=== PATIENT | female | born 1955 | race Caucasian/White ===

== ENCOUNTER → 2017-06-14 | Outpatient (CLI) | payer OTHER ==
--- NOTE | 2017-06-20 14:28 | MM ---
Reason for exam: screening (asymptomatic). Last mammogram was performed 2 years and 7 months ago. History: Patient is postmenopausal. Family history of breast cancer in paternal grandmother. Physical Findings: A clinical breast exam by your physician is recommended on an annual basis and results should be correlated with mammographic findings. MG Screening Mammo w CAD Bilateral CC and MLO view(s) were taken. Prior study comparison: November 24, 2014, bilateral MG screening mammo w CAD. September 09, 2013, bilateral digital screening mammo w/CAD. There are scattered fibroglandular densities. Finding: There are typically benign round, grouped/clustered calcifications in the anterior position of the left breast, 2cm from the nipple. New finding since November 24, 2014 and September 09, 2013. ASSESSMENT: Probably benign, BI-RAD 3 RECOMMENDATION: Follow-up diagnostic mammogram of the left breast in 6 months. (including magnification views)
== END | disposition home or self-care (01) ==
LOC: RADMAMWWP 12:40
PROVIDERS: ATTEND Internal Medicine
DX: Z12.31 Encounter for screening mammogram for malignant neoplasm of breast (principal)

== ENCOUNTER → 2017-12-16 | Outpatient (CLI) | payer BC ==
--- NOTE | 2017-12-20 10:20 | MM ---
Reason for exam: follow-up at short interval from prior study. Last mammogram was performed 6 months ago. History: Patient is postmenopausal. Family history of breast cancer in paternal grandmother. Physical Findings: Nurse did not find any significant physical abnormalities on exam. MG 3D Diag Mammo W/Cad LT CC, MLO, ML, CC with magnification, and ML with magnification view(s) were taken of the left breast. Prior study comparison: June 15, 2017, bilateral MG screening mammo w CAD. November 24, 2014, bilateral MG screening mammo w CAD. The breast tissue is heterogeneously dense. This may lower the sensitivity of mammography. There are 4 stable grouped calcifications. No significant new findings when compared with previous films. These results were verbally communicated with the patient and result sheet given to the patient on 12/16/17. ASSESSMENT: Probably benign, BI-RAD 3 RECOMMENDATION: Follow-up diagnostic mammogram of both breasts in 6 months. Back on schedule.
== END | disposition home or self-care (01) ==
LOC: RADMAMWWP 09:33
PROVIDERS: ATTEND Internal Medicine
DX: R92.8 Other abnormal and inconclusive findings on diagnostic imaging of breast (principal)
CPT/HCPCS: 77061; 77065

== ENCOUNTER 2018-06-26 22:30 | Emergency (ER) | payer BC ==
[2018-06-26 22:36] VITALS: TEMP 98.2
--- NOTE | 2018-06-26 22:37 | ED ---
Chest Pain HPI - General Chief Complaint: Chest Pain Stated Complaint: Chest pain Time Seen by Provider: 06/26/18 22:36 Source: patient, RN notes reviewed, old records reviewed Mode of arrival: ambulatory Limitations: no limitations - History of Present Illness Initial Comments: This is a 63-year-old female the ER for evaluation. Patient resents today for evaluation of chest pain. Patient does have severe anterior chest pain sharp chest pain stabbing chest pain. Patient complained ER for evaluation. Patient does have history of high blood pressure has been seen by cardiology. No current cardiac catheterization, patient has had prior stress test which was normal MD Complaint: chest pain -: hour(s) Onset: during rest Pain Location: substernal Pain Radiation: back Severity: moderate Severity scale (1-10): 7 Quality: tightness, sharp Consistency: constant Improves With: nothing Worsens With: nothing Anginal Symptoms: nausea Other Symptoms: palpitations Treatments Prior to Arrival: none - Related Data Home Medications Medication Instructions Recorded Confirmed Lisinopril-Hctz 20-12.5 mg 1 tab PO BID 08/03/14 06/26/18 [Zestoretic 20-12.5] Aspirin [Adult Low Dose Aspirin EC] 81 mg PO DAILY 06/26/18 06/26/18 Metoprolol Succinate [Toprol XL] 200 mg PO DAILY 06/26/18 06/26/18 amLODIPine [Norvasc] 10 mg PO DAILY 06/26/18 06/26/18 cloNIDine HCL 0.3 mg PO BID 06/26/18 06/26/18 Allergies Allergy/AdvReac Type Severity Reaction Status Date / Time codeine AdvReac Nausea & Verified 06/26/18 22:52 Vomiting Review of Systems ROS Statement: Those systems with pertinent positive or pertinent negative responses have been documented in the HPI. ROS Other: All systems not noted in ROS Statement are negative. 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, HR runs low History of Any Multi-Drug Resistant Organisms: None Reported Past Surgical History: Hysterectomy Additional Past Surgical History / Comment(s): corrective rt eye sugery post cva , Past Anesthesia/Blood Transfusion Reactions: No Reported Reaction Past Psychological History: No Psychological Hx Reported Smoking Status: Never smoker Past Alcohol Use History: None Reported Past Drug Use History: None Reported - Past Family History Mother Family Medical History: Cancer General Exam Limitations: no limitations General appearance: alert, in no apparent distress Head exam: Present: atraumatic, normocephalic, normal inspection Eye exam: Present: normal appearance, PERRL, EOMI. Absent: scleral icterus, conjunctival injection, periorbital swelling ENT exam: Present: normal exam, mucous membranes moist Neck exam: Present: normal inspection. Absent: tenderness, meningismus, lymphadenopathy Respiratory exam: Present: normal lung sounds bilaterally. Absent: respiratory distress, wheezes, rales, rhonchi, stridor Cardiovascular Exam: Present: regular rate, normal rhythm, normal heart sounds. Absent: systolic murmur, diastolic murmur, rubs, gallop, clicks GI/Abdominal exam: Present: soft, normal bowel sounds. Absent: distended, tenderness, guarding, rebound, rigid Extremities exam: Present: normal inspection, full ROM, normal capillary refill. Absent: tenderness, pedal edema, joint swelling, calf tenderness Back exam: Present: normal inspection Neurological exam: Present: alert, oriented X3, CN II-XII intact Psychiatric exam: Present: normal affect, normal mood Skin exam: Present: warm, dry, intact, normal color. Absent: rash Course Vital Signs 06/26/18 06/26/18 06/27/18 22:33 22:53 00:34 Temperature 98.2 F Pulse Rate 55 L 57 L 51 L Respiratory 16 20 16 Rate Blood Pressure 195/100 198/119 152/81 O2 Sat by Pulse 97 97 97 Oximetry - Reevaluation(s) Reevaluation #1: Medical record is reviewed Reevaluation #2: On reevaluation patient has no chest pain, refusing pain medication blood pressure is normalized without intervention, patient admits to anxiety upon admission to ER Reevaluation #3: Patient offered him. Patient observation for cardiology evaluation she states she will call federal appellate law clerk in the morning states that she is pain-free like to be discharged home Chest Pain MDM - MDM 63 female the ER for evaluation. Presents today for evaluation regards to chest pain. Chest pain resolved upon admission to emergency room. CTA chest is negative EKG negative troponin negative. Disposition Clinical Impression: Chest pain Disposition: HOME SELF-CARE Condition: Undetermined Instructions: Chest Pain (ED) Is patient prescribed a controlled substance at d/c from ED?: No Referrals: Nory Murguia MD [Primary Care Provider] - 1-2 days
[2018-06-26 23:18] LABS: Basophils # (A) 0.1 k/uL (0-0.2); Basophils % (A) 1 %; Eosinophils # (A) 0.2 k/uL (0-0.7); Eosinophils % (A) 3 %; HCT 45.6 % (34.0-46.0); HGB 15.3 gm/dL (11.4-16.0); Lymphocytes # (A) 2.4 k/uL (1.0-4.8); Lymphocytes % (A) 42 %; MCH 29.8 pg (25.0-35.0); MCHC 33.6 g/dL (31.0-37.0); MCV 88.8 fL (80.0-100.0); Mean Platelet Volume 7.5; Monocytes # (A) 0.3 k/uL (0-1.0); Monocytes % (A) 6 %; Neutrophils # (A) 2.6 k/uL (1.3-7.7); Neutrophils % (A) 45 %; Platelet Count 166 k/uL (150-450); RBC 5.14 m/uL (3.80-5.40); RDW 13.2 % (11.5-15.5); WBC 5.7 k/uL (3.8-10.6)
[2018-06-26 23:23] LABS: Albumin 4.5 g/dL (3.5-5.0); Calcium 9.4 mg/dL (8.4-10.2); Total Bilirubin 0.9 mg/dL (0.2-1.3); Total Protein 8.3 g/dL (6.3-8.2)
[2018-06-26 23:27] LABS: Partial Thromboplastin Time 25.9 sec (22.0-30.0); Prothrombin Time 10.7 sec (9.0-12.0)
[2018-06-26 23:31] LABS: Magnesium 1.6 mg/dL (1.6-2.3); Potassium 4.4 mmol/L (3.5-5.1)
[2018-06-26 23:35] LABS: Creatine Kinase 75 U/L (30-135)
[2018-06-26 23:48] LABS: Creatine Kinase MB 0.9 ng/mL (0.0-2.4)
[2018-06-26 23:53] LABS: Troponin I <0.012 ng/mL (0.000-0.034)
[2018-06-27] MEDS ORDERED: SODIUM CHLORIDE 0.9% 1,000 ML IV STA (00:22)
[2018-06-27] MEDS ORDERED: MORPHINE SULFATE 4 MG/ML SYRINGE IVP STA (00:22)
[2018-06-27] MEDS ORDERED: LABETALOL SYRINGE 5 MG/ML IVP STA (00:23)
[2018-06-27 00:36] VITALS: BP 152/81; PULSE 51; RESP 16
--- NOTE | 2018-06-27 00:41 | CT ---
EXAMINATION TYPE: CT angio thor/abd pel aorta DATE OF EXAM: 06/27/2018 COMPARISON: HISTORY: R/O AAA Chest pain abdominal pain CT DLP: 1637.90 mGycm. Automated Exposure Control for Dose Reduction was Utilized. CONTRAST: CT scan of the thorax, abdomen and pelvis is performed with IV Contrast, patient injected with 100 mL of Isovue 370. Images obtained also without contrast. FINDINGS: The lungs are clear of infiltrate. There is no evidence of a pulmonary mass. There is no pleural effu fredis. There is normal branching pattern of the great vessels on the aortic arch. Thoracic aorta is intact w ithout evidence of aneurysm or dissection. I see no filling defects in the pulmonary arteries. Heart size is slightly enlarged. There is no pericardial effusion. Abdominal aorta is intact without evidence of aneurysm or dissection. There is no evidence of stenosi s. There is patency of the celiac artery and superior mesenteric artery. There is patency of the eusebio l arteries. There is patency of the iliac and femoral arteries. The bladder distends smoothly. There is no free fluid in the pelvis. Kidneys show satisfactory contrast opacification. There is no hydronephrosis. There is no retroperito daylin adenopathy. I see no bony destructive process. There is some sigmoid diverticulosis without evid ence of diverticulitis. IMPRESSION: Negative CT angiogram of the chest abdomen pelvis. No evidence of pulmonary embolism. No evidence of aortic aneurysm or dissection. No evidence of hemodynamic stenosis.
== END 2018-06-27 01:04 | disposition home or self-care (01) ==
LOC: EC 22:30
DX: R07.2 Precordial pain (principal); R11.0 Nausea; R00.2 Palpitations; F41.9 Anxiety disorder, unspecified; I48.91 Unspecified atrial fibrillation; K21.9 Gastro-esophageal reflux disease without esophagitis; I10 Essential (primary) hypertension; Z86.73 Personal history of transient ischemic attack (TIA), and cerebral infarction without residual deficits; Z79.82 Long term (current) use of aspirin; Z79.899 Other long term (current) drug therapy; Z88.5 Allergy status to narcotic agent; Z53.29 Procedure and treatment not carried out because of patient's decision for other reasons
CPT/HCPCS: 36415; 93005; 83880; 80053; 82550; 82553; 83690; 83735; 84484; 85025; 85610; 85730; 71275; 74174; 99285; Q9967

== ENCOUNTER → 2018-08-19 | Outpatient (CLI) | payer BC ==
--- NOTE | 2018-08-19 09:54 | MM ---
Reason for exam: follow-up at short interval from prior study. Last mammogram was performed 8 months ago. History: Patient is postmenopausal. Family history of breast cancer in paternal grandmother. Physical Findings: Nurse did not find any significant physical abnormalities on exam. MG Diagnostic Mammo w CAD DARY Bilateral CC and MLO view(s) were taken. Prior study comparison: December 16, 2017, left breast MG 3d diag mammo w/cad LT. June 15, 2017, bilateral MG screening mammo w CAD. The breast tissue is heterogeneously dense. This may lower the sensitivity of mammography. There are benign appearing round calcifications in the left breast. There is no discrete abnormality. These results were verbally communicated with the patient and result sheet given to the patient on 08/19/18. ASSESSMENT: Benign, BI-RAD 2 RECOMMENDATION: Routine screening mammogram of both breasts in 1 year.
== END | disposition home or self-care (01) ==
LOC: RADMAMWWP 08:03
PROVIDERS: ATTEND Internal Medicine
DX: R92.8 Other abnormal and inconclusive findings on diagnostic imaging of breast (principal)
CPT/HCPCS: 77066

== ENCOUNTER → 2019-08-20 | Outpatient (CLI) | payer MEDICARE, OTHER ==
--- NOTE | 2019-08-21 14:09 | MM ---
Reason for exam: screening (asymptomatic). Last mammogram was performed 1 year ago. History: Patient is postmenopausal. Family history of breast cancer in paternal grandmother. Physical Findings: A clinical breast exam by your physician is recommended on an annual basis and results should be correlated with mammographic findings. MG Screening Mammo w CAD Bilateral CC and MLO view(s) were taken. Prior study comparison: August 19, 2018, bilateral MG diagnostic mammo w CAD DARY. December 16, 2017, left breast MG 3d diag mammo w/cad LT. There are scattered fibroglandular densities. No suspicious abnormality. No significant changes when compared with prior studies. ASSESSMENT: Negative, BI-RAD 1 RECOMMENDATION: Routine screening mammogram of both breasts in 1 year.
== END | disposition home or self-care (01) ==
LOC: RADMAMWWP 09:14
PROVIDERS: ATTEND Internal Medicine
DX: Z12.31 Encounter for screening mammogram for malignant neoplasm of breast (principal)
CPT/HCPCS: 77067

== ENCOUNTER → 2020-08-26 | Outpatient (CLI) | payer MEDICARE, OTHER ==
--- NOTE | 2020-08-29 12:04 | MM ---
Reason for exam: screening (asymptomatic). Last mammogram was performed 1 year ago. History: Patient is postmenopausal. Family history of breast cancer in paternal grandmother. Physical Findings: A clinical breast exam by your physician is recommended on an annual basis and results should be correlated with mammographic findings. MG Screening Mammo w CAD Bilateral CC and MLO view(s) were taken. Prior study comparison: August 20, 2019, bilateral MG screening mammo w CAD. August 19, 2018, bilateral MG diagnostic mammo w CAD DARY. There are scattered fibroglandular densities. There are benign appearing round calcifications bilaterally. There is no discrete abnormality. ASSESSMENT: Benign, BI-RAD 2 RECOMMENDATION: Routine screening mammogram of both breasts in 1 year.
== END ==
LOC: RADMAMWWP 08:15
PROVIDERS: ATTEND Internal Medicine
DX: Z12.31 Encounter for screening mammogram for malignant neoplasm of breast (principal); Z78.0 Asymptomatic menopausal state; Z80.3 Family history of malignant neoplasm of breast
CPT/HCPCS: 77067

== ENCOUNTER → 2021-12-19 | Outpatient (CLI) | payer MEDICARE, OTHER ==
--- NOTE | 2021-12-20 05:09 | XR ---
EXAMINATION TYPE: XR cervical spine 6 views comp DATE OF EXAM: 12/19/2021 COMPARISON: None HISTORY: 66-year-old female limited movement in the neck, pain and stiffness. FINDINGS: Some degenerative change at the C1 dens articulation. No predental space widening or prevertebral sof t tissue swelling. Multilevel facet and uncovertebral joint arthropathy. Mild endplate spondylosis th roughout. On the right, changes resulting in moderate bony neuroforaminal narrowing at C3-C4 and mild at C5-C6. Normal odontoid view. Trace grade 1 anterolisthesis C4-C5 likely on a degenerative basis. IMPRESSION: 1. Multilevel facet and uncovertebral joint hypertrophy. Degenerative trace grade 1 anterolisthesis C 4-C5. 2. Moderate bony neuroforaminal narrowing on the right at C3-C4. Mild on the right at C5-C6.
--- NOTE | 2021-12-21 07:17 | MM ---
Reason for Exam: Screening (asymptomatic). Last mammogram was performed 1 year(s) and 3 month(s) ago. Patient History: Menarche at age 12. First Full-Term at age 16. Left ovary removed at age 47. Right ovary removed at age 47. Hysterectomy at age 47. Postmenopausal. Paternal grandmother had breast cancer. Risk Values: Kayla 5 year model risk: 1.2%. NCI Lifetime model risk: 4.2%. Prior Study Comparison: 08/19/2018 Bilateral Diagnostic Mammogram, [facility]. 08/20/2019 Bilateral Screening Mammogram, [facility]. 08/26/2020 Bilateral Screening Mammogram, [facility]. Tissue Density: The breast tissue is heterogeneously dense. This may lower the sensitivity of mammography. Findings: Analyzed By CAD. There is no suspicious group of microcalcifications or new suspicious mass in either breast. Overall Assessment: Negative, BI-RAD 1 Management: Screening Mammogram of both breasts in 1 year. A clinical breast exam by your physician is recommended on an annual basis and results should be correlated with mammographic findings. Electronically signed and approved by: Emiliano Gifford M.D. Radiologis
== END | disposition home or self-care (01) ==
LOC: RADMAMWWP 14:25
PROVIDERS: ATTEND Internal Medicine
DX: Z12.31 Encounter for screening mammogram for malignant neoplasm of breast (principal); M47.812 Spondylosis without myelopathy or radiculopathy, cervical region; M99.71 Connective tissue and disc stenosis of intervertebral foramina of cervical region; Z78.0 Asymptomatic menopausal state
CPT/HCPCS: 72050; 77067

== ENCOUNTER 2022-04-27 18:53 | Emergency (ER) | payer MEDICARE, OTHER ==
--- NOTE | 2022-04-27 19:37 | XR ---
EXAMINATION TYPE: XR chest 2V DATE OF EXAM: 04/27/2022 7:19 PM COMPARISON: Chest radiographs from none TECHNIQUE: XR chest 2V Frontal and lateral views of the chest. CLINICAL INDICATION:Female, 67 years old with history of cough; FINDINGS: Lungs/Pleura: There is no evidence of pleural effusion, focal consolidation, or pneumothorax. Pulmonary vascularity: Unremarkable. Heart/mediastinum: Cardiomediastinal silhouette is unremarkable. Musculoskeletal: No acute osseous pathology. IMPRESSION: No acute cardiopulmonary disease/process.
--- NOTE | 2022-04-27 20:51 | ED ---
General Adult HPI - General Chief complaint: Upper Respiratory Infection Stated complaint: Cough, chest congestion Time Seen by Provider: 04/27/22 20:25 Source: patient Mode of arrival: ambulatory Limitations: no limitations - History of Present Illness Initial comments: Dictation was produced using [employer] dictation software. please excuse any gram matical, word or spelling errors. Chief Complaint: 67-year-old who presents emergency department for cough and congestion History of Present Illness: Patient 59-year-old female presents emergency department for cough and congestion. Patient states that she's been feeling this for the last 2-3 days. Symptoms began mildly. Patient has any history of COPD or asthma. She's been exposed to her grandchild that tested positive for RSV recently. No other individual seemed to be sick. Denies any fever, chills or night sweats. No chest pain. Patient states that she takes medications for hypertension. Patient has any anticoagulation use however chart review shows that patient is a history of atrial fibrillation. The ROS documented in this emergency department record has been reviewed and confirmed by me. Those systems with pertinent positive or negative responses have been documented in the HPI. All other systems are other negative and/or noncontributory. PHYSICAL EXAM: General Impression: Alert and oriented x3, not in acute distress HEENT: Normocephalic atraumatic, extra-ocular movements intact, pupils equal and reactive to light bilaterally, mucous membranes moist. Cardiovascular: Heart regular rate and rhythm Chest: Able to complete full sentences, no retractions, no tachypnea, very faint wheeze at end expiration Abdomen: abdomen soft, non-tender, non-distended, no organomegaly Musculoskeletal: Pulses present and equal in all extremities, no peripheral edema Motor: no focal deficits noted Neurological: CN II-XII grossly intact, no focal motor or sensory deficits noted Skin: Intact with no visualized rashes Psych: Normal affect and mood ED course: 67-year-old female presents to the emergency department for URI type symptoms. She does have a mild faint end expiratory wheeze. Vital signs are stable. Patient showing signs of respiratory distress. She has had an obvious sick exposure. Patient not showing signs of respiratory distress. She is not hypoxic. Patient likely has a viral URI. Coag tests negative. Influenza test negative. Chest x-ray shows no acute processes. Patient given inhaler and Medrol Dosepak. Advised follow-up with primary care doctor. Return precautions discussed. - Related Data Home Medications Medication Instructions Recorded Confirmed Lisinopril-Hctz 20-12.5 mg 1 tab PO BID 08/03/14 06/26/18 [Zestoretic 20-12.5] Aspirin [Adult Low Dose Aspirin EC] 81 mg PO DAILY 06/26/18 06/26/18 Metoprolol Succinate [Toprol XL] 200 mg PO DAILY 06/26/18 06/26/18 amLODIPine [Norvasc] 10 mg PO DAILY 06/26/18 06/26/18 cloNIDine HCL [Catapres] 0.3 mg PO BID 06/26/18 06/26/18 Previous Rx's Medication Instructions Recorded Albuterol Sulfate [Proair Hfa] 1 - 2 puff INHALATION Q6HR PRN 04/27/22 #8.5 gm Benzonatate [Tessalon Perles] 100 mg PO TID PRN #24 capsule 04/27/22 methylPREDNISolone [Medrol Dose 0 mg PO DIRECTED #1 packet 04/27/22 Pack] Allergies Allergy/AdvReac Type Severity Reaction Status Date / Time codeine AdvReac Nausea & Verified 04/27/22 19:03 Vomiting Review of Systems ROS Statement: Those systems with pertinent positive or pertinent negative responses have been documented in the HPI. ROS Other: All systems not noted in ROS Statement are negative. 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, HR runs low History of Any Multi-Drug Resistant Organisms: None Reported Past Surgical History: Hysterectomy Additional Past Surgical History / Comment(s): corrective rt eye sugery post cva, Past Anesthesia/Blood Transfusion Reactions: No Reported Reaction Past Psychological History: No Psychological Hx Reported Smoking Status: Never smoker Past Alcohol Use History: None Reported Past Drug Use History: None Reported - Past Family History Mother Family Medical History: Cancer General Exam Limitations: no limitations Course Vital Signs 04/27/22 04/27/22 19:01 20:29 Temperature 98.8 F 98.2 F Pulse Rate 62 69 Respiratory 20 18 Rate Blood Pressure 136/72 O2 Sat by Pulse 95 96 Oximetry Medical Decision Making - Lab Data Lab Results 04/27/22 04/27/22 Range/Units 19:07 19:07 Coronavirus (PCR) Not Detected (Not Detectd) Influenza Type A RNA Not Detected (Not Detectd) Influenza Type B (PCR) Not Detected (Not Detectd) Disposition Clinical Impression: URI (upper respiratory infection), Bronchitis Disposition: HOME SELF-CARE Condition: Fair Instructions (If sedation given, give patient instructions): Acute Bronchitis (ED) Prescriptions: methylPREDNISolone [Medrol Dose Pack] 0 mg PO DIRECTED #1 packet Albuterol Sulfate [Proair Hfa] 1 - 2 puff INHALATION Q6HR PRN #8.5 gm PRN Reason: Dyspnea Benzonatate [Tessalon Perles] 100 mg PO TID PRN #24 capsule PRN Reason: Cough Is patient prescribed a controlled substance at d/c from ED?: No Referrals: Nory Murguia MD [Primary Care Provider] - 1-2 days Time of Disposition: 20:51
[2022-04-27 20:59] VITALS: BP 140/87; PULSE 68; RESP 16; TEMP 98.4
== END 2022-04-27 21:01 | disposition home or self-care (01) ==
LOC: EC 18:53
DX: J06.9 Acute upper respiratory infection, unspecified (principal); Z20.822 Contact with and (suspected) exposure to COVID-19; I48.91 Unspecified atrial fibrillation; G45.9 Transient cerebral ischemic attack, unspecified; K21.9 Gastro-esophageal reflux disease without esophagitis; I10 Essential (primary) hypertension; Z79.01 Long term (current) use of anticoagulants; Z79.891 Long term (current) use of opiate analgesic; Z79.83 Long term (current) use of bisphosphonates; Z79.899 Other long term (current) drug therapy; Z79.811 Long term (current) use of aromatase inhibitors; Z88.5 Allergy status to narcotic agent
CPT/HCPCS: 71046; 87502; 87635; 99283

== ENCOUNTER → 2022-12-20 | Outpatient (CLI) | payer MEDICARE, OTHER ==
--- NOTE | 2022-12-20 11:54 | BD ---
EXAMINATION TYPE: Axial Bone Density DATE OF EXAM: 12/20/2022 CLINICAL HISTORY: 67 year old Female. ICD-10 CODE: N95.1 MENOPAUSAL, M85.88DISORDER OF BONE DENSITY Height: 65 Weight: 261.4 FRAX RISK QUESTIONS: Alcohol (3 or more units per day): no Family History (Parent hip fracture): no Glucocorticoids (More than 3mos): no (Ex: prednisone, prednisolone, methylprednisolone, dexamethasone, and hydrocortisone). History of Fracture in Adulthood: yes Secondary Osteoporosis: 1. Type 1 Diabetes: no 2. Hyperthyroidism: no 3. Menopause before 45: no 4. Malnutrition: no 5. Chronic liver disease: no Rheumatoid Arthritis: no Current Tobacco Use: no RISK FACTORS HISTORY OF: Surgery to Spine/Hip(right/left)/Wrist (right/left): no Family History of Osteoporosis: no Active: no Diet low in dairy products/other sources of calcium: yes Postmenopausal woman: yes Lost more than 2 inches in height since high school: no MEDICATIONS: Additional History: EXAM MEASUREMENTS: Bone mineral densitometry was performed using the Bergey's System. Bone mineral density as measured about the Lumbar spine is: ----- L1-L4(G/cm2): 1.290 T Score Values are as follows: ----- L1: 0.9 ----- L2: 0.9 ----- L3: 0.8 ----- L4: 0.9 ----- L1-L4: 0.9 Z Score Values are as follows: ----- L1: 1.3 ----- L2: 1.4 ----- L3: 1.3 ----- L4: 1.4 ----- L1-L4: 1.4 Bone mineral density : baseline Bone mineral density about the R hip (g/cm2): 1.127 Bone mineral density about the L hip (g/cm2): 1.109 T Score values are as follows: -----R Neck: 0.4 -----L Neck: -0.4 -----R Total: 0.9 -----L Total: 0.8 Z Score values are as follows: -----R Neck: 1.3 -----L Neck: 0.5 -----R Total: 1.5 -----L Total: 1.4 Bone mineral density : baseline FRAX%s: The graph provided illustrates a 10.6% chance for a major osteoporotic fx and a 0.5% chance f or the hips probability for fx in 10 years time. IMPRESSION: Normal (Values between +1 and -1 indicate normal bone mass). Consider repeating this study in 5 year s or sooner if there is some new clinical indication. NOTE: T-SCORE=SD OF THE YOUNG ADULT MEAN.
--- NOTE | 2022-12-21 17:03 | MM ---
Reason for Exam: Screening (asymptomatic). Last screening mammogram was performed 12 month(s) ago. Patient History: Menarche at age 12. First Full-Term at age 16. Left ovary removed at age 47. Right ovary removed at age 47. Hysterectomy at age 47. Postmenopausal. Paternal grandmother had breast cancer. Risk Values: Kayla 5 year model risk: 1.2%. NCI Lifetime model risk: 4.0%. Prior Study Comparison: 08/20/2019 Bilateral Screening Mammogram, [facility]. 08/26/2020 Bilateral Screening Mammogram, [facility]. 12/19/2021 Bilateral MG screening mammo w CAD, [facility]. Tissue Density: There are scattered fibroglandular densities. Findings: Analyzed By CAD. There appears symmetrical and stable. No significant interval change is evident. A few scattered benign punctate calcifications are within the left breast. No significant interval change is evident. No suspicious groups of microcalcifications, spiculated or lobular masses, architectural distortion or other secondary signs of malignancy are mammographically apparent. Overall Assessment: Benign, BI-RAD 2 Management: Screening Mammogram of both breasts in 1 year. A negative mammogram report should not preclude additional follow up of suspicious palpable abnormalities. Patient should continue monthly self breast exam. A clinical breast exam by your physician is recommended on an annual basis and results should be correlated with mammographic findings. Electronically signed and approved by: Lance Cooper D.O. Radiologis
== END | disposition home or self-care (01) ==
LOC: RADMAMWWP 11:05
PROVIDERS: ATTEND Internal Medicine
DX: Z12.31 Encounter for screening mammogram for malignant neoplasm of breast (principal); M85.88 Other specified disorders of bone density and structure, other site; Z78.0 Asymptomatic menopausal state; Z80.3 Family history of malignant neoplasm of breast
CPT/HCPCS: 77063; 77067; 77080

== ENCOUNTER → 2023-12-23 | Outpatient (CLI) | payer MEDICARE, OTHER ==
--- NOTE | 2023-12-24 09:41 | MM ---
Reason for Exam: Screening (asymptomatic). Last mammogram was performed 1 year(s) and 1 month(s) ago. Patient History: Menarche at age 12. First Full-Term at age 16. Left ovary removed at age 47. Right ovary removed at age 47. Hysterectomy at age 47. Postmenopausal. Paternal grandmother had breast cancer. Risk Values: Kayla 5 year model risk: 1.2%. NCI Lifetime model risk: 3.9%. Prior Study Comparison: 08/26/2020 Bilateral Screening Mammogram, [facility]. 12/19/2021 Bilateral MG screening mammo w CAD, [facility]. 12/20/2022 Bilateral MG 3D screening mammo w/cad, [facility]. Tissue Density: There are scattered areas of fibroglandular density. Findings: Analyzed By CAD. There is no suspicious group of microcalcifications or new suspicious mass in either breast. Overall Assessment: Negative, BI-RAD 1 Management: Screening Mammogram of both breasts in 1 year. . Patient should continue monthly self-breast exams. A clinical breast exam by your physician is recommended on an annual basis. This exam should not preclude additional follow-up of suspicious palpable abnormalities. Note on Kayla scores and lifetime risk: 1. A Kyala score greater than 3% is considered moderate risk. If this is the case, consider specialist referral to assess eligibility for a risk reducing agent. 2. If overall lifetime risk for the development of breast cancer is 20% or higher, the patient may qualify for future screening with alternating mammogram and breast MRI. Electronically signed and approved by: Chacho Kuhn M.D. Radiologist
== END | disposition home or self-care (01) ==
LOC: RADMAMWWP 12:31
PROVIDERS: ATTEND Internal Medicine
DX: Z12.31 Encounter for screening mammogram for malignant neoplasm of breast (principal); Z78.0 Asymptomatic menopausal state; Z80.3 Family history of malignant neoplasm of breast
CPT/HCPCS: 77063; 77067

== ENCOUNTER → 2024-05-04 | Outpatient (CLI) | payer MEDICARE, OTHER ==
[2024-05-04 15:33] LABS: BUN/Creat Ratio 22.25 Ratio (12.00-20.00); Blood Urea Nitrogen 26.7 mg/dL (9.0-27.0); Calcium 9.6 mg/dL (8.7-10.3); Carbon Dioxide 29.3 mmol/L (21.6-31.8); Chloride 101 mmol/L (96-109); Glucose 153 mg/dL (70-110); Potassium 4.7 mmol/L (3.5-5.5); Sodium 141 mmol/L (135-145)
[2024-05-04 15:39] LABS: Basophils # (A) 0.05 X 10*3/uL (0.00-0.10); Basophils % (A) 1.1 %; Eosinophils # (A) 0.18 X 10*3/uL (0.04-0.35); Eosinophils % (A) 3.9 %; HCT 41.7 % (37.2-46.3); HGB 13.1 g/dL (12.0-15.0); Lymphocytes # (A) 1.14 X 10*3/uL (0.90-5.00); Lymphocytes % (A) 24.4 %; MCH 29.4 pg (27.0-32.0); MCHC 31.4 g/dL (32.0-37.0); MCV 93.5 FL (80.0-97.0); Mean Platelet Volume 11.5 FL (9.5-12.2); Monocytes # (A) 0.46 X 10*3/uL (0.20-1.00); Monocytes % (A) 9.9 %; NRBC Per 100 WBC 0 X 10*3/uL (0.00-0.01); Neutrophils # (A) 2.83 X 10*3/uL (1.80-7.70); Neutrophils % (A) 60.5 %; Platelet Count 159 X 10*3/uL (140-440); RBC 4.46 X 10*6/uL (4.10-5.20); RDW 13.9 % (11.5-14.5); WBC 4.67 X 10*3/uL (4.50-10.00)
[2024-05-04 15:43] LABS: INR 1.01 sec (0.93-1.11); Prothrombin Time 10.9 sec (9.9-11.9)
== END | disposition home or self-care (01) ==
LOC: LABPAT 11:20
PROVIDERS: ATTEND Orthopaedic Surgery
DX: Z01.818 Encounter for other preprocedural examination (principal); Z22.322 Carrier or suspected carrier of Methicillin resistant Staphylococcus aureus; M17.12 Unilateral primary osteoarthritis, left knee
CPT/HCPCS: 36415; 80048; 85025; 85610; 87070

== ENCOUNTER 2024-05-11 07:06 | Day surgery (SDC) | payer MEDICARE, OTHER ==
[2024-05-07 09:53] VITALS: BMI 43.7
[~2024-05-11 07:06] MED LIST: ALPRAZolam 0.25 MG TAB PO PRN; ALPRAZolam 0.5 MG TAB PO PRN; ASPIRIN 325 MG TAB PO STA; ATORVASTATIN 80 MG TAB PO STA; NITROGLYCERIN SL TABS 0.4 MG TAB SUBLINGUAL PRN
[2024-05-11] MEDS: SODIUM CHLORIDE 0.9% 1,000 ML in EMPTY BAG 1 BAG IV ONE (07:17)
[2024-05-11] MEDS: ASPIRIN 81 MG PO STA (07:17)
[2024-05-11 07:23] VITALS: RESP 18; TEMP 98.1
[2024-05-11] MEDS: IV FLUID CONTINUATION 1,000 ML IV ONE (07:31)
[2024-05-11] MEDS: HEPARIN SODIUM,PORCINE 10,000 UNIT in SODIUM CHLORIDE 0.9% 1,000 ML IRRIGATION PRN (08:19)
[2024-05-11] MEDS: HEPARIN SODIUM,PORCINE (1 ML) 2,500 UNIT in SODIUM CHLORIDE 0.9% 250 ML IRRIGATION PRN (08:20)
[2024-05-11] MEDS: fentaNYL (PF) 50 MCG/ML 2 ML AMP IVP ONE (08:46)
[2024-05-11] MEDS: MIDAZOLAM 2 MG/2 ML VIAL IVP ONE (08:46)
[2024-05-11] MEDS: LIDOCAINE 1% INJ 10MG/ML (20 ML MDV) SQ ONE (08:48)
[2024-05-11] MEDS: VERAPAMIL SYRINGE (5 MG/10 ML) INTRAARTER ONE (08:49)
[2024-05-11] MEDS: HEPARIN SODIUM 1,000 UN/ML (10ML VL) IV ONE (08:53)
[2024-05-11] MEDS ORDERED: RX INFO: IV CONTRAST WAS GIVEN 1 EACH MISC MISCELLANE PRN (09:01)
[2024-05-11] MEDS: IOPAMIDOL-370 100ML BTL INJ ONE (09:01)
--- NOTE | 2024-05-11 09:03 | P.PCN ---
Date of Procedure: 05/11/24 Operative Findings: CARDIAC CATHETERIZATION PERFORMING PHYSICIAN: Shaggy Butler MD, RPVI PROCEDURE PERFORMED: 1. Selective right and left coronary angiogram 2. Left heart catheterization 3. Ultrasound-guided access of the right radial artery INDICATION: Abnormal myocardial perfusion imaging stress test before noncardiac source COMPLICATION: None APPROACH: Right radial artery LEVEL OF SEDATION: Moderate with a sedation length of 12 minutes PROCEDURE DESCRIPTION: After obtaining an informed consent, the patient was brought to cardiac school laboratory technician. Local anesthesia was performed using lidocaine subcutaneously. The right radial artery was cannulated using Seldinger technique, the guidewire passed easily, following that we advanced a 5-Azerbaijani sheath dilator assembly, the wire and dilator were removed and sheath was flushed. Following that, 2 mg of verapamil along with 5000 unit heparin were given. Selective right and left coronary angiogram using a 6-Azerbaijani JR4 and JL 3.5 catheters. Following that we did left heart catheterization using 6-Azerbaijani pigtail catheter. The procedure was completed there was no complication. SELECTIVE CORONARY ANGIOGRAM: The right coronary artery: Large-caliber vessel and a dominant vessel and appears to be angiographically normal Left main: Is angiographically normal The left circumflex: Large-caliber vessel nondominant vessel and appears to be angiographically normal and gives rise into multiple obtuse marginal branches all appear to be no rmal The left anterior descending artery: Large-caliber vessel appears to be normal as well and gives rise into a large diagonal branch which seems to be normal HEMODYNAMICS: The LVEDP was 12 mmHg with no significant gradient across aortic valve CONCLUSION: 1. Normal coronary angiogram 2. Normal left-sided filling POSTPROCEDURE MANAGEMENT: Medical treatment
[2024-05-11] MEDS ORDERED: SODIUM CHLORIDE 0.9% 1,000 ML IV SCH (09:15)
[2024-05-11 12:20] VITALS: BP 155/74; PULSE 49
== END 2024-05-11 12:49 | disposition home or self-care (01) ==
LOC: CATHCVL 07:06
PROVIDERS: ATTEND Internal Medicine Interventional Cardiology
DX: R94.39 Abnormal result of other cardiovascular function study (principal); E11.9 Type 2 diabetes mellitus without complications; I10 Essential (primary) hypertension; E78.5 Hyperlipidemia, unspecified; M19.90 Unspecified osteoarthritis, unspecified site; I51.7 Cardiomegaly; I38 Endocarditis, valve unspecified; Z79.82 Long term (current) use of aspirin; Z79.899 Other long term (current) drug therapy; Z88.5 Allergy status to narcotic agent
CPT/HCPCS: 93458; 99152; C1769 ×2; C1894; J2250; J1644 ×3; J2003; J3010; Q9967

== ENCOUNTER 2024-05-25 05:41 | Day surgery (SDC) | payer MEDICARE, OTHER ==
[~2024-05-25 05:41] MED LIST changes: -ALPRAZolam 0.25 MG TAB PO PRN; -ALPRAZolam 0.5 MG TAB PO PRN; -ASPIRIN 325 MG TAB PO STA; -ATORVASTATIN 80 MG TAB PO STA; -NITROGLYCERIN SL TABS 0.4 MG TAB SUBLINGUAL PRN; +TRANEXAMIC 1,000 MG/100ML-NACL 1,000 MG in SALINE 1 100ML.BAG IVPB PRN
[2024-05-25 06:56] LABS: Glucose,Whole Blood 140 mg/dL (70-110)
[2024-05-25] MEDS: ACETAMINOPHEN TAB 500 MG TAB PO PRN (07:06)
[2024-05-25] MEDS: MELOXICAM 7.5 MG TAB PO PRN (07:07)
[2024-05-25] MEDS: DEXAMETHASONE SOD PHOSPHATE 4 MG/ML 1 ML VIAL IVP STA (07:10)
[2024-05-25] MEDS: ONDANSETRON 4 MG/2 ML VIAL IVP STA (07:10)
[2024-05-25] MEDS: MIDAZOLAM 2 MG/2 ML VIAL IV ONE (07:18)
[2024-05-25] MEDS: fentaNYL (PF) 50 MCG/ML 2 ML AMP IVP PRN (07:18)
[2024-05-25] MEDS ORDERED: TRANEXAMIC 1,000 MG/100ML-NACL PREMIX BAG ONE (07:39)
[2024-05-25] MEDS ORDERED: fentaNYL (PF) 50 MCG/ML 2 ML AMP ONE (07:39)
[2024-05-25] MEDS ORDERED: LIDOCAINE 1% INJ 10MG/ML (20 ML MDV) ONE (07:39)
[2024-05-25] MEDS ORDERED: ROPIVACAINE 5 MG/ML 30 ML VIAL ONE (07:39)
[2024-05-25] MEDS ORDERED: NEOSTIGMINE 1 MG/ML 10 ML VIAL ONE (07:39)
[2024-05-25] MEDS ORDERED: GLYCOPYRROLATE 0.2 MG/ML 2 ML VIAL ONE (07:39)
[2024-05-25] MEDS ORDERED: DEXAMETHASONE SOD PHOSPHATE 4 MG/ML 1 ML VIAL ONE (07:39)
[2024-05-25] MEDS ORDERED: PROPOFOL 10 MG/ML 20 ML VIAL IV ONE (07:39)
[2024-05-25] MEDS ORDERED: HYDROmorphone (PF) 1 MG/ML ONE (07:39)
[2024-05-25] MEDS ORDERED: ROCURONIUM 10 MG/ML (5 ML VIAL) IV ONE (07:39)
[2024-05-25] MEDS ORDERED: SUCCINYLCHOLINE CHLORIDE 200 MG/10 ML VIAL IV ONE (07:39)
[2024-05-25] MEDS: IV FLUID CONTINUATION 1,000 ML IV ONE ×2 (07:44→11:47)
[2024-05-25] MEDS: ceFAZolin 1,000 MG in SODIUM CHLORIDE 0.9% 1,000 ML IRRIGATION ONE (08:18)
--- NOTE | 2024-05-25 08:28 | P.ANPRN ---
Procedure Note - Anesthesia - Nerve Block Performed Left Dominiqueck Single Time Out Performed: Yes Date of Procedure: 05/25/24 Procedure Start Time: : Procedure Stop Time: :30 Location of Patient: PreOp Indication: Acute Post-Operative Pain, Analgesia, Requested by Surgeon Sedation Type: Sedate with meaningful contact maintained Preparation: Sterile Prep Position: Right Lateral Catheter: None Needle Types: Pajunk Needle Gauge: 21 Ultrasound used to visualize needle placement: Yes Ultrasound used to observe medication spread: Yes Injectate: 0.5% Ropivacaine (see comment for volume) (Ropiv 20ml+Decadron 4mg) Blood Aspirated: No Pain Paresthesia on Injection Noted: No Resistance on Injection: Normal Image Stored and Saved: Yes Events: Uneventful and Well Tolerated
--- NOTE | 2024-05-25 08:33 | P.ANPRN ---
Procedure Note - Anesthesia - Nerve Block Performed Left Adductor Canal Infusion Time Out Performed: Yes Date of Procedure: 05/25/24 Procedure Start Time: : Procedure Stop Time: Location of Patient: PreOp Indication: Acute Post-Operative Pain, Requested by Surgeon Sedation Type: Sedate with meaningful contact maintained Preparation: Sterile Prep, Sterile Dressing Position: Supine Catheter: Indwelling Needle Types: Pajunk Needle Gauge: 18 Ultrasound used to visualize needle placement: Yes Ultrasound used to observe medication spread: Yes Injectate: 0.5% Ropivacaine (see comment for volume) (30 ml + 4 mg Dexamethasone) Blood Aspirated: No Pain Paresthesia on Injection Noted: No Resistance on Injection: Normal Image Stored and Saved: Yes Events: Uneventful and Well Tolerated
--- NOTE | 2024-05-25 08:34 | HP ---
HISTORY AND PHYSICAL DATE OF SURGERY: 05/25/2024. HISTORY OF PRESENT ILLNESS: Alondra Rodriguez is a 69-year-old patient seen with symptomatic left knee osteoarthritis. We discussed options regarding treatment. She elected to proceed with left total knee arthroplasty. Consent regarding the procedure was obtained. Cardiac clearance was provided by Dr. Butler. The patient's primary care physician is Dr. Murguia. PAST MEDICAL HISTORY: Hypertension, hyperlipidemia, cardiovascular disease. PAST SURGICAL HISTORY: Left knee arthroscopy. DAILY MEDICATIONS: 1. Amlodipine. 2. Aspirin. 3. Furosemide. 4. Lisinopril. 5. Potassium. 6. Rosuvastatin. ALLERGIES: Codeine. SOCIAL HISTORY: She denies tobacco use. PHYSICAL EVALUATION OF THE LEFT KNEE: Her range of motion is -2/3 to 120 degrees. She has tenderness along the medial joint line. Crepitance along the medial patellofemoral compartments with range of motion. There is pain with patellofemoral compression. Ligaments stable. Hip rotation is without pain. Distal neurovascular exam is intact. IMAGING STUDIES: Left knee radiographs revealed severe osteoarthritic changes. IMPRESSION: 1. Left knee osteoarthritis. 2. Hypertension. 3. Hyperlipidemia. 4. Cardiovascular disease. PLAN: Left total knee arthroplasty. MMODL / IJN: [id number] /
--- NOTE | 2024-05-25 09:22 | P.OP ---
Date of Procedure: 05/25/24 Preoperative Diagnosis: Left knee osteoarthritis Postoperative Diagnosis: Left knee osteoarthritis Procedure(s) Performed: Left total knee arthroplasty Implants: 1. DePuy attune size 6 narrow left cruciate retaining cemented femur 2. DePuy attune size 6 fixed-bearing cemented tibial baseplate 3. DePuy attune size 6 fixed-bearing cruciate retaining 5 mm polyethylene tibial insert 4. DePuy attune 38 mm all polyethylene cemented patella Anesthesia: GETA, regional (Adductor canal catheter, iPAQ block) Surgeon: Raymundo Bauman Internet Sales Manager #1: Pedro Luis Tejeda Estimated Blood Loss (ml): 45 Pathology: none sent Condition: stable Disposition: PACU Indications for Procedure: 69-year-old patient seen with symptomatic left knee osteoarthritis. After having treatment options discussed, she elected to proceed with total knee arthroplasty. Operative Findings: See description of procedure Description of Procedure: Patient was taken to the operative suite after having an adductor canal catheter placed by the department of anesthesia. Patient underwent a general anesthetic by the department of anesthesia. Patient was given preoperative IV intake antibiotics and TXA. A well-padded tourniquet was placed about the left lower extremity. The lower extremity was then prepped and draped in the normal sterile orthopedic fashion. The extremity was elevated, a tourniquet was insufflated to 300. A standard anterior incision was made sharply through skin. Dissection was taken down through the subcutaneous soft tissues down to the extensor mechanism. A medial arthrotomy was performed, patella was everted and knee was flexed. There was advanced osteoarthritis noted. I introduced my distal intramedullary femoral drill. I then introduced the distal femoral cutting jig. Roland OLSON secured the cutting jig with 2 pins. I held retractors in position while Roland OLSON performed the distal femoral resection through the guide area we now removed her distal femoral cutting guide. We now placed our 4-in-1 femoral cutting block and positioned and it was secured with 2 pins by Roland OLSON while I held the block in position. The distal femoral finishing was now completed. A proximal tibial cutting guide was positioned. I held the guide in the appropriate position with both hands well Roland OLSON inserted stabilizing pins into the guide. Proximal tibial cut was made. We now placed a trial femoral component into position, along with an appropriate size tibial tray and insert. We now took the knee through range of motion and had full extension good flexion and good overall soft tissue balance noted. The patella was everted and stabilized with 2 towel clips held by Roland OLSON while I performed a flush with patellar quad tendon utilizing a fresh sawblade. We templated the patella, appropriate drill holes were made. An appropriate trial patella was positioned, knee was taken through full range of motion with the patella tracking very nicely. The trial patella was removed. Drill holes were made through the femoral component. All trial components were removed after marking off the appropriate rotation of the tibia. Retractors were now positioned along the proximal tibia. An appropriate keel punch was made with the appropriate size tibial guide by myself on Roland OLSON assisted by holding retractors. At this point appropriate size implants were chosen and opened. The joint was irrigated copiously with pulse lavage mechanical irrigation. The wound was irrigated with pulse lavage mechanical irrigation. We mixed antibiotic methylmethacrylate. We placed the knee into flexion. We placed multiple retractors assisted by Roland OLSON to expose the proximal tibia. Once the methyl methacrylate was ready, the tibial component was cemented into place removing any excess methylmethacrylate form by both myself and Roland OLSON. The femoral component was cemented into place removing the removing any excess methylmethacrylate performed by both myself and Roland OLSON. We then inserted the appropriate size polyethylene tibial insert. We made sure that it was locked into position. We took the knee into full extension, and then back in a flexion making sure we had removed any excess methylmethacrylate. The patellar component was then cemented down and secured with clamp. Excess methylmethacrylate removed. We kept the knee in full extension, patellar clamp in position until methylmethacrylate had hardened. Once it had hardened the patellar clamp was removed. The knee was taken through full range of motion. The patella tracked nicely. There was good soft tissue balancing. The tourniquet was now released. Additional hemostasis was achieved via electrocautery. A second gram of TXA was given. The wound again was irrigated with pulse lavage mechanical irrigation. The extensor mechanism was repaired with Ethibond suture. We checked the repair with range of motion and it was stable. The subcutaneous soft tissues were repaired with Vicryl in layers. The skin was approximated with pernio/Dermabond. Sterile dressings were applied followed by loose web roll and Dusty bandage. The patient was transferred to a bed, and taken to recovery in stable and satisfactory condition. Roland OLSON assisted with this complex procedure.
[2024-05-25] MEDS ORDERED: NALOXONE 0.4 MG/ML 1 ML VIAL IV PRN (09:23)
[2024-05-25] MEDS ORDERED: HYDROmorphone 0.5 MG/0.5 ML SYRINGE IVP PRN ×2 (09:23)
[2024-05-25] MEDS: HYDROmorphone 0.5 MG/0.5 ML SYRINGE IVP PRN (10:11)
--- NOTE | 2024-05-25 10:19 | XR ---
EXAMINATION TYPE: XR knee limited LT DATE OF EXAM: 05/25/2024 COMPARISON: NONE CLINICAL INDICATION: Female, 69 years old with history of Evaluation for Postop abnormality and align ment; TECHNIQUE: 2 views FINDINGS: Images show placement of left total knee arthroplasty. Both distal femoral and proximal tib ial components of the prosthesis appear well seated without periprosthetic fracture. Alignment grossl y anatomic. Anterior soft tissue swelling with soft tissue air as well as intra-articular air related to recent operation. IMPRESSION: Uncomplicated postoperative appearance left total knee arthroplasty. [facility], , 05/25/2024 10:17 AM
[2024-05-25] MEDS: ROPIVACAINE 1,100 MG, SODIUM CHLORIDE 0.9% 500 ML 330 ML, EMPTY PAIN BALL 1 EACH MISCELLANE PRN (10:21)
[2024-05-25] MEDS: LACTATED RINGERS 1,000 ML IV SCH (11:49)
[2024-05-25] MEDS: HYDROmorphone 0.5 MG/0.5 ML SYRINGE IVP STA (13:50)
[2024-05-25] MEDS: ceFAZolin 3 GM in SODIUM CHLORIDE 0.9% 100 ML IVPB SCH (15:30)
[2024-05-25 17:55] LABS: Glucose,Whole Blood 203 mg/dL (70-110)
[2024-05-25] MEDS: ONDANSETRON 4 MG/2 ML VIAL IVP PRN (17:59)
[2024-05-25] MEDS: LISINOPRIL-HCTZ 20-12.5 MG 1 EACH TAB PO SCH (20:13)
[2024-05-25] MEDS: SENNOSIDES-DOCUSATE SODIUM 1 EACH TAB PO SCH (20:13)
[2024-05-25] MEDS: ASPIRIN 325 MG TAB PO SCH (20:13)
[2024-05-25] MEDS: HYDROcodone/APAP 5-325MG 1 EACH TAB PO PRN (20:18)
[2024-05-25 20:32] LABS: Glucose,Whole Blood 174 mg/dL (70-110)
[2024-05-26] MEDS: HYDROcodone/APAP 7.5-325MG 1 EACH TAB PO PRN (05:38)
--- NOTE | 2024-05-26 06:50 | P.PN ---
Progress Note - Text Progress Note Date: 05/26/24 patient was seen and evaluated at bedside. Status post postoperative day 1 for left side total knee arthroplasty patient had adductor canal catheter for postop pain control. Patient rated pain at rest 4 out of 10 in severity. Patient describes pain is aching, throbbing type on the sides of the knee and back of the knee. Patient started walking with support. With activity patient pain levels are 5-6 out of 10 in severity. With the help of oral pain medications pain levels are tolerable. Patient denied any weakness/ numbness in lower extremities. patient denied any fever, pain over the catheter site. Physical exam: Patient vital signs stable Patient is alert awake oriented 3 responding to all questions appropriately Examination of the catheter site showed dressing intact, no leaking fluid around the catheter, no redness, no tenderness over the catheter insertion area. plan: status post postoperative day 1 for left side total knee arthroplasty with adductor canal catheter for pain control. Patient was discussed to continue the medication rate until the pump is completely empty and instructed the patient how to discontinue the catheter.
[2024-05-26 06:55] LABS: Glucose,Whole Blood 144 mg/dL (70-110)
[2024-05-26 08:30] LABS: Basophils # (A) 0.01 X 10*3/uL (0.00-0.10); Basophils % (A) 0.1 %; Eosinophils # (A) 0 X 10*3/uL (0.04-0.35); Eosinophils % (A) 0 %; HCT 36.5 % (37.2-46.3); HGB 11.5 g/dL (12.0-15.0); Lymphocytes % (A) 7.8 %; MCH 29.4 pg (27.0-32.0); MCHC 31.5 g/dL (32.0-37.0); MCV 93.4 FL (80.0-97.0); Mean Platelet Volume 11.2 FL (9.5-12.2); Monocytes # (A) 0.52 X 10*3/uL (0.20-1.00); Monocytes % (A) 6.8 %; NRBC Per 100 WBC 0 X 10*3/uL (0.00-0.01); Platelet Count 120 X 10*3/uL (140-440); RBC 3.91 X 10*6/uL (4.10-5.20); RDW 13.9 % (11.5-14.5); WBC 7.65 X 10*3/uL (4.50-10.00)
[2024-05-26 08:40] LABS: ALT 13 U/L (8-44); AST 25 U/L (13-35); Albumin 3.8 g/dL (3.8-4.9); Albumin/Globulin Ratio 1.58 Ratio (1.60-3.17); Alkaline Phosphatase 54 U/L (41-126); BUN/Creat Ratio 16.07 Ratio (12.00-20.00); Blood Urea Nitrogen 24.1 mg/dL (9.0-27.0); Calcium 8.6 mg/dL (8.7-10.3); Carbon Dioxide 24.2 mmol/L (21.6-31.8); Chloride 101 mmol/L (96-109); Globulin 2.4 g/dL (1.6-3.3); Glucose 144 mg/dL (70-110); Potassium 4.4 mmol/L (3.5-5.5); Sodium 137 mmol/L (135-145); Total Bilirubin 0.2 mg/dL (0.3-1.2); Total Protein 6.2 g/dL (6.2-8.2)
[2024-05-26] MEDS ORDERED: NON FORMULARY DRUG (Aspirin [Adult Low Dose Aspirin Ec] 81 MG Tablet.Dr) PO SCH (09:00)
--- NOTE | 2024-05-26 09:15 | P.CONS ---
History of Present Illness - Reason for Consult Consult date: 05/25/24 - History of Present Illness Alondra Rodriguez, is a 69-year-old female patient who presented for an elective left knee arthroplasty with Dr. Bauman on 05/25/2024 patient has a past medical history of CVA 20 years ago, atrial fibrillation, diabetes mellitus, GERD, hypertension and osteoarthritis with failed conservative management at this time patient does report some discomfort to left knee site. Current vital signs temp 97.4, heart rate 54, respiratory rate 17, blood pressure 141/67 with a pulse ox of 95% on 3 L. Patient denies chest pain or shortness of breath. Patient denies nausea vomiting or diarrhea. 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, a-fib during eye surgery-self corrected-seen by reel slitter, HR runs low,small heart valve leak History of Any Multi-Drug Resistant Organisms: None Reported Past Surgical History: Hysterectomy, Orthopedic Surgery Additional Past Surgical History / Comment(s): corrective rt eye sugery post cva, lt thumb and wrist surgery-no hardware Past Anesthesia/Blood Transfusion Reactions: No Reported Reaction Past Psychological History: No Psychological Hx Reported Smoking Status: Never smoker Past Alcohol Use History: None Reported Past Drug Use History: None Reported - Past Family History Mother Family Medical History: Cancer Medications and Allergies Home Medications Medication Instructions Recorded Confirmed Type Lisinopril-Hctz 20-12.5 mg 1 tab PO BID 08/03/14 05/25/24 History [Zestoretic 20-12.5] Aspirin [Adult Low Dose Aspirin EC] 81 mg PO DAILY 06/26/18 05/25/24 History Metoprolol Succinate [Toprol XL] 100 mg PO DAILY 06/26/18 05/25/24 History amLODIPine [Norvasc] 10 mg PO DAILY 06/26/18 05/25/24 History Furosemide [Lasix] 20 mg PO DAILY 05/07/24 05/25/24 History Pioglitazone [Actos] 45 mg PO DAILY 05/07/24 05/25/24 History Potassium Chloride 10 meq PO DAILY 05/07/24 05/25/24 History Rosuvastatin [Crestor] 10 mg PO DAILY 05/07/24 05/25/24 History Allergies Allergy/AdvReac Type Severity Reaction Status Date / Time codeine AdvReac Nausea & Verified 05/25/24 06:18 Vomiting Physical Exam Vitals: Vital Signs Temp Pulse Resp BP Pulse Ox 05/25/24 13:52 97.4 F L 50 L 14 144/74 98 05/25/24 13:51 52 L 05/25/24 13:15 52 L 14 148/71 100 05/25/24 12:45 52 L 14 141/67 95 05/25/24 12:42 97.4 F L 50 L 17 144/74 98 05/25/24 12:15 51 L 10 L 142/72 99 05/25/24 11:45 52 L 14 156/71 97 05/25/24 11:30 52 L 16 156/73 98 05/25/24 11:15 53 L 16 152/71 96 05/25/24 11:00 53 L 14 151/71 97 05/25/24 10:45 54 L 14 153/69 96 05/25/24 10:30 55 L 14 150/74 97 05/25/24 10:15 59 L 14 150/72 96 05/25/24 10:00 62 14 148/73 97 05/25/24 09:45 98.2 F 69 12 147/70 98 05/25/24 07:40 53 L 16 112/56 98 05/25/24 06:33 97.0 F L 61 16 152/72 97 Intake and Output 05/25/24 05/25/24 05/25/24 06:59 14:59 22:59 Intake Total 1101 Output Total 45 Balance 1056 Intake: IV 1101 Output: Estimated Blood Loss 45 Other: Weight 119.748 kg Head normocephalic Neck supple Lungs clear to auscultation bilaterally no wheezing or crackles Heart regular rate and rhythm S1-S2, no rub or gallop Abdomen is soft nontender nondistended positive bowel sounds no hepatosplen omegaly Extremities no edema. Left knee dressing clean dry and intact Neuro alert and orientated to 3 Results CBC & Chem 7: 05/26/24 02:43 05/26/24 02:43 Labs: Abnormal Lab Results - Last 24 Hours (Table) 05/25/24 Range/Units 06:55 POC Glucose (mg/dL) 140 H (70-110) mg/dL Assessment and Plan Assessment: 1. Left knee osteoarthritis status post surgical repair on 05/25/[address] Bauman. 2. History of CVA 3. History of diabetes mellitus 4. History of essential hypertension 5. History of GERD Thank you for this consultation we will continue to follow patient closely throughout stay Repeat labs ordered in a.m. Aspirin for DVT prophylaxis per orthopedic services Time with Patient: Greater than 30 (Greater than 60% of the total time spent in counseling and coordination of care)
--- NOTE | 2024-05-26 09:17 | P.PN ---
Subjective Progress Note Date: 05/26/24 Alondra Rodriguez, is a 69-year-old female patient who presented for an elective left knee arthroplasty with Dr. Bauman on 05/25/2024 patient has a past medical history of CVA 20 years ago, atrial fibrillation, diabetes mellitus, GERD, hypertension and osteoarthritis with failed conservative management at t his time patient does report some discomfort to left knee site. Current vital signs temp 97.4, heart rate 54, respiratory rate 17, blood pressure 141/67 with a pulse ox of 95% on 3 L. Patient denies chest pain or shortness of breath. Patient denies nausea vomiting or diarrhea. Patient denies any urinary burning or frequency On 05/26/2024 patient is alert and oriented x 3. Patient reports some pain to left knee site. Current vital signs temp 8.4, heart rate 67, respiratory rate 17, blood pressure 144/61 with a pulse ox of 95% on room air. White blood cell 7.65, hemoglobin 11.5, creatinine 1.5 and bun 24.1. Patient denies chest pain or shortness of breath. Patient denies nausea vomiting or diarrhea. Patient denies any urinary burning or frequency Objective - Vital Signs Vital signs: Vital Signs Temp 98.4 F 05/26/24 07:28 Pulse 67 05/26/24 07:28 Resp 17 05/26/24 07:28 BP 144/61 05/26/24 07:28 Pulse Ox 95 05/26/24 07:28 FiO2 Intake & Output 05/25/24 05/26/24 05/26/24 18:59 06:59 18:59 Intake Total 1101 1180 Output Total 45 1200 Balance 1056 -20 Weight 119.748 kg Intake: IV 1101 Oral 1180 Output: Urine 1200 Estimated Blood Loss 45 Other: # Voids 3 - Labs CBC & Chem 7: 05/26/24 02:43 05/26/24 02:43 Labs: Abnormal Lab Results - Last 24 Hours (Table) 05/25/24 05/25/24 05/26/24 Range/Units 17:52 20:31 02:43 RBC 3.91 L (4.10-5.20) X 10*6/uL Hgb 11.5 L (12.0-15.0) g/dL Hct 36.5 L (37.2-46.3) % MCHC 31.5 L (32.0-37.0) g/dL Plt Count 120 L (140-440) X 10*3/uL Lymphocytes # 0.60 L (0.90-5.00) X 10*3/uL Eosinophils # 0 L (0.04-0.35) X 10*3/uL Est GFR (CKD-EPI) (>=60) Glucose (70-110) mg/dL POC Glucose (mg/dL) 203 H 174 H (70-110) mg/dL Calcium (8.7-10.3) mg/dL Total Bilirubin (0.3-1.2) mg/dL Albumin/Globulin Ratio (1.60-3.17) Ratio 05/26/24 05/26/24 Range/Units 02:43 06:54 RBC (4.10-5.20) X 10*6/uL Hgb (12.0-15.0) g/dL Hct (37.2-46.3) % MCHC (32.0-37.0) g/dL Plt Count (140-440) X 10*3/uL Lymphocytes # (0.90-5.00) X 10*3/uL Eosinophils # (0.04-0.35) X 10*3/uL Est GFR (CKD-EPI) 37 L (>=60) Glucose 144 H (70-110) mg/dL POC Glucose (mg/dL) 144 H (70-110) mg/dL Calcium 8.6 L (8.7-10.3) mg/dL Total Bilirubin 0.2 L (0.3-1.2) mg/dL Albumin/Globulin Ratio 1.58 L (1.60-3.17) Ratio Assessment and Plan Assessment: 1. Left knee osteoarthritis status post surgical repair on 05/25/[address] Bauman. 2. History of CVA 3. History of diabetes mellitus 4. History of essential hypertension 5. History of GERD Thank you for this consultation we will continue to follow patient closely t hroughout stay Repeat labs ordered in a.m. Aspirin for DVT prophylaxis per orthopedic services
[2024-05-26] MEDS: FUROSEMIDE 20 MG TAB PO SCH (09:33)
[2024-05-26] MEDS: METOPROLOL SUCCINATE (ER) 100 MG TAB.ER.24H PO SCH (09:33)
[2024-05-26] MEDS: amLODIPine 10 MG TAB PO SCH (09:33)
[2024-05-26] MEDS: POTASSIUM CHLORIDE ER 10 MEQ TAB.ER.PRT PO SCH (09:33)
[2024-05-26] MEDS: ATORVASTATIN 20 MG TAB PO SCH (09:33)
[2024-05-26] MEDS: PIOGLITAZONE 45 MG TAB PO SCH (09:34)
[2024-05-26] MEDS: MULTIVITAMINS, THERA 1 EACH TAB PO SCH (11:09)
[2024-05-26 11:10] LABS: Glucose,Whole Blood 159 mg/dL (70-110)
--- NOTE | 2024-05-26 15:40 | P.PN ---
Subjective Progress Note Date: 05/26/24 Principal diagnosis: Status post left total knee arthroplasty patient is progressing well with regards to her knee. She did okay with physical therapy today. She was dealing with a little bit more pain than she thought, it seems to be improving throughout the day. She is urinating with no issues. She denies headaches, lightheadedness, chest pain or shortness of breath Objective - Vital Signs Vital signs: Vital Signs Temp 98.0 F 05/26/24 14:00 Pulse 51 L 05/26/24 14:00 Resp 14 05/26/24 14:00 BP 138/71 05/26/24 14:00 Pulse Ox 95 05/26/24 14:00 FiO2 Intake & Output 05/25/24 05/26/24 05/26/24 18:59 06:59 18:59 Intake Total 1101 1180 Output Total 45 1200 Balance 1056 -20 Weight 119.748 kg Intake: IV 1101 Oral 1180 Output: Urine 1200 Estimated Blood Loss 45 Other: # Voids 3 - Exam Left lower extremity: Incision is clean, dry, and intact. The foam dressing is in good condition. There is minimal soft tissue swelling and ecchymosis surrounding the medial and lateral aspects of the incision. Calf is soft, no tenderness with palpation. Plantar flexion, dorsiflexion, EHL, FHL are intact. Sensory exam to light touch throughout the extremity is intact, dorsal pedis pulses 2+. - Labs CBC & Chem 7: 05/26/24 02:43 05/26/24 02:43 Labs: Abnormal Lab Results - Last 24 Hours (Table) 05/25/24 05/25/24 05/26/24 Range/Units 17:52 20:31 02:43 RBC 3.91 L (4.10-5.20) X 10*6/uL Hgb 11.5 L (12.0-15.0) g/dL Hct 36.5 L (37.2-46.3) % MCHC 31.5 L (32.0-37.0) g/dL Plt Count 120 L (140-440) X 10*3/uL Lymphocytes # 0.60 L (0.90-5.00) X 10*3/uL Eosinophils # 0 L (0.04-0.35) X 10*3/uL Est GFR (CKD-EPI) (>=60) Glucose (70-110) mg/dL POC Glucose (mg/dL) 203 H 174 H (70-110) mg/dL Calcium (8.7-10.3) mg/dL Total Bilirubin (0.3-1.2) mg/dL Albumin/Globulin Ratio (1.60-3.17) Ratio 05/26/24 05/26/24 05/26/24 Range/Units 02:43 06:54 11:09 RBC (4.10-5.20) X 10*6/uL Hgb (12.0-15.0) g/dL Hct (37.2-46.3) % MCHC (32.0-37.0) g/dL Plt Count (140-440) X 10*3/uL Lymphocytes # (0.90-5.00) X 10*3/uL Eosinophils # (0.04-0.35) X 10*3/uL Est GFR (CKD-EPI) 37 L (>=60) Glucose 144 H (70-110) mg/dL POC Glucose (mg/dL) 144 H 159 H (70-110) mg/dL Calcium 8.6 L (8.7-10.3) mg/dL Total Bilirubin 0.2 L (0.3-1.2) mg/dL Albumin/Globulin Ratio 1.58 L (1.60-3.17) Ratio Assessment and Plan Assessment: postoperative day #1 status post left total knee arthroplasty Plan: pain control, continue with current medications DVT prophylaxis, continue with current medications icing and elevating techniques discussed wound care instructions discussed encourage incentive spirometer medical recommendations appreciated discharge planning: Plan for discharge to home with home health care on 05/27/2024 Time with Patient: Less than 30
[2024-05-26 16:46] LABS: Glucose,Whole Blood 163 mg/dL (70-110)
[2024-05-26 21:17] LABS: Glucose,Whole Blood 157 mg/dL (70-110)
[2024-05-27 06:35] LABS: Glucose,Whole Blood 131 mg/dL (70-110)
[2024-05-27 08:29] LABS: ALT 8 U/L (8-44); AST 18 U/L (13-35); Albumin 3.7 g/dL (3.8-4.9); Albumin/Globulin Ratio 1.48 Ratio (1.60-3.17); Alkaline Phosphatase 54 U/L (41-126); BUN/Creat Ratio 17.69 Ratio (12.00-20.00); Calcium 8.7 mg/dL (8.7-10.3); Carbon Dioxide 27.1 mmol/L (21.6-31.8); Chloride 102 mmol/L (96-109); Globulin 2.5 g/dL (1.6-3.3); Glucose 139 mg/dL (70-110); Potassium 3.9 mmol/L (3.5-5.5); Sodium 139 mmol/L (135-145); Total Bilirubin 0.3 mg/dL (0.3-1.2); Total Protein 6.2 g/dL (6.2-8.2)
[2024-05-27 08:37] LABS: Basophils # (A) 0.02 X 10*3/uL (0.00-0.10); Basophils % (A) 0.3 %; Eosinophils # (A) 0.05 X 10*3/uL (0.04-0.35); Eosinophils % (A) 0.8 %; HCT 34.5 % (37.2-46.3); Lymphocytes # (A) 0.89 X 10*3/uL (0.90-5.00); Lymphocytes % (A) 14.8 %; MCH 29.3 pg (27.0-32.0); MCHC 31.9 g/dL (32.0-37.0); MCV 91.8 FL (80.0-97.0); Mean Platelet Volume 11.4 FL (9.5-12.2); Monocytes # (A) 0.76 X 10*3/uL (0.20-1.00); Monocytes % (A) 12.6 %; NRBC Per 100 WBC 0 X 10*3/uL (0.00-0.01); Neutrophils # (A) 4.25 X 10*3/uL (1.80-7.70); Neutrophils % (A) 70.8 %; Platelet Count 137 X 10*3/uL (140-440); RBC 3.76 X 10*6/uL (4.10-5.20); RDW 14.4 % (11.5-14.5); WBC 6.01 X 10*3/uL (4.50-10.00)
--- NOTE | 2024-05-27 09:33 | P.PN ---
Subjective Progress Note Date: 05/27/24 Alondra Rodriguez, is a 69-year-old female patient who presented for an elective left knee arthroplasty with Dr. Bauman on 05/25/2024 patient has a past medical history of CVA 20 years ago, atrial fibrillation, diabetes mellitus, GERD, hypertension and osteoarthritis with failed conservative management at t his time patient does report some discomfort to left knee site. Current vital signs temp 97.4, heart rate 54, respiratory rate 17, blood pressure 141/67 with a pulse ox of 95% on 3 L. Patient denies chest pain or shortness of breath. Patient denies nausea vomiting or diarrhea. Patient denies any urinary burning or frequency On 05/26/2024 patient is alert and oriented x 3. Patient reports some pain to left knee site. Current vital signs temp 8.4, heart rate 67, respiratory rate 17, blood pressure 144/61 with a pulse ox of 95% on room air. White blood cell 7.65, hemoglobin 11.5, creatinine 1.5 and bun 24.1. Patient denies chest pain or shortness of breath. Patient denies nausea vomiting or diarrhea. Patient denies any urinary burning or frequency On 05/27/2024 patient is alert and oriented x 3. Patient has been working with physical therapy. Current vital signs temp 98.3, heart rate 53, respiratory rate 17, blood pressure 151/66 with a pulse ox of 90% on room air. Lab work revealing white blood cell 6.0, hemoglobin 11.0, creatinine 1.3 and bun 23 anticipate discharge home today per orthopedic services. Patient denies chest pain or shortness of breath. Patient denies nausea vomiting or diarrhea. Patient denies any urinary burning or frequency Objective - Vital Signs Vital signs: Vital Signs Temp 97.8 F 05/27/24 01:26 Pulse 51 L 05/27/24 01:26 Resp 16 05/27/24 01:26 BP 137/73 05/27/24 01:26 Pulse Ox 92 L 05/27/24 01:26 FiO2 Intake & Output 05/26/24 05/27/24 05/27/24 18:59 06:59 18:59 Other: Voiding Method Toilet # Voids 4 3 - Labs CBC & Chem 7: 05/27/24 02:24 05/27/24 02:24 Labs: Abnormal Lab Results - Last 24 Hours (Table) 05/26/24 05/26/24 05/26/24 Range/Units 02:43 02:43 11:09 RBC 3.91 L (4.10-5.20) X 10*6/uL Hgb 11.5 L (12.0-15.0) g/dL Hct 36.5 L (37.2-46.3) % MCHC 31.5 L (32.0-37.0) g/dL Plt Count 120 L (140-440) X 10*3/uL Lymphocytes # 0.60 L (0.90-5.00) X 10*3/uL Eosinophils # 0 L (0.04-0.35) X 10*3/uL Est GFR (CKD-EPI) 37 L (>=60) Glucose 144 H (70-110) mg/dL POC Glucose (mg/dL) 159 H (70-110) mg/dL Calcium 8.6 L (8.7-10.3) mg/dL Total Bilirubin 0.2 L (0.3-1.2) mg/dL Albumin/Globulin Ratio 1.58 L (1.60-3.17) Ratio 05/26/24 05/26/24 05/27/24 Range/Units 16:42 21:15 06:34 RBC (4.10-5.20) X 10*6/uL Hgb (12.0-15.0) g/dL Hct (37.2-46.3) % MCHC (32.0-37.0) g/dL Plt Count (140-440) X 10*3/uL Lymphocytes # (0.90-5.00) X 10*3/uL Eosinophils # (0.04-0.35) X 10*3/uL Est GFR (CKD-EPI) (>=60) Glucose (70-110) mg/dL POC Glucose (mg/dL) 163 H 157 H 131 H (70-110) mg/dL Calcium (8.7-10.3) mg/dL Total Bilirubin (0.3-1.2) mg/dL Albumin/Globulin Ratio (1.60-3.17) Ratio Assessment and Plan Assessment: 1. Left knee osteoarthritis status post surgical repair on 05/25/[address] Bauman. 2. History of CVA 3. History of diabetes mellitus 4. History of essential hypertension 5. History of GERD Thank you for this consultation we will continue to follow patient closely throughout stay Repeat labs ordered in a.m. Aspirin for DVT prophylaxis per orthopedic services
--- NOTE | 2024-05-27 09:42 | P.PN ---
Subjective Progress Note Date: 05/27/24 Principal diagnosis: Status post left total knee arthroplasty Patient was evaluated at bedside, she is resting comfortably. Patient's pain is well-controlled current medications. She has been ambulating with the assistance of a walker and finds it is certainly easier today. She denies headaches, lightheadedness, chest pain or shortness of breath Objective - Vital Signs Vital signs: Vital Signs Temp 98.3 F 05/27/24 07:40 Pulse 53 L 05/27/24 07:40 Resp 17 05/27/24 07:40 BP 151/66 05/27/24 07:40 Pulse Ox 90 L 05/27/24 07:40 FiO2 Intake & Output 05/26/24 05/27/24 05/27/24 18:59 06:59 18:59 Other: Voiding Method Toilet # Voids 4 3 - Exam Left lower extremity: Incision is clean, dry, and intact. The foam dressing is in good condition. There is minimal soft tissue swelling and ecchymosis surrounding the medial and lateral aspects of the incision. Calf is soft, no tenderness with palpation. Plantar flexion, dorsiflexion, EHL, FHL are intact. Sensory exam to light touch throughout the extremity is intact, dorsal pedis pulses 2+. - Labs CBC & Chem 7: 05/27/24 02:24 05/27/24 02:24 Labs: Abnormal Lab Results - Last 24 Hours (Table) 05/26/24 05/26/24 05/26/24 Range/Units 11:09 16:42 21:15 RBC (4.10-5.20) X 10*6/uL Hgb (12.0-15.0) g/dL Hct (37.2-46.3) % MCHC (32.0-37.0) g/dL Plt Count (140-440) X 10*3/uL Lymphocytes # (0.90-5.00) X 10*3/uL Est GFR (CKD-EPI) (>=60) Glucose (70-110) mg/dL POC Glucose (mg/dL) 159 H 163 H 157 H (70-110) mg/dL Albumin (3.8-4.9) g/dL Albumin/Globulin Ratio (1.60-3.17) Ratio 05/27/24 05/27/24 05/27/24 Range/Units 02:24 02:24 06:34 RBC 3.76 L (4.10-5.20) X 10*6/uL Hgb 11.0 L (12.0-15.0) g/dL Hct 34.5 L (37.2-46.3) % MCHC 31.9 L (32.0-37.0) g/dL Plt Count 137 L (140-440) X 10*3/uL Lymphocytes # 0.89 L (0.90-5.00) X 10*3/uL Est GFR (CKD-EPI) 44 L (>=60) Glucose 139 H (70-110) mg/dL POC Glucose (mg/dL) 131 H (70-110) mg/dL Albumin 3.7 L (3.8-4.9) g/dL Albumin/Globulin Ratio 1.48 L (1.60-3.17) Ratio Assessment and Plan Assessment: Postoperative day #2 status post left total knee arthroplasty Plan: pain control, Plan for discharge home with Otho 7.5 mg/25 mg. Patient also provided with senna S for constipation DVT prophylaxis, Aspirin 81 mg twice a day for 30 days icing and elevating techniques discussed wound care instructions discussed encourage incentive spirometer medical recommendations appreciated discharge planning: Stable for discharge home today Time with Patient: Less than 30
--- NOTE | 2024-05-27 09:44 | P.DS ---
Providers Date of admission: 05/25/2024 Expected date of discharge: 05/27/24 Attending physician: Raymundo Bauman Consults: 05/25/24 09:23 Consult Physician Routine Consulting Provider: Nory Murguia Reason/Comments: Medical management Do you want consulting provider notified?: Yes Primary care physician: Nory Murguia [facility] Course: Date of admission: 05/25/2024 Date of discharge: 05/27/2024 Admission diagnosis: Status post left total knee arthroplasty Discharge diagnosis: Same Attending physician: Dr. Bauman Surgical procedures: Left total knee arthroplasty Brief history: Patient is a 69-year-old female with a history of progressive primary left knee osteoarthritis. At this point patient has failed conservative treatment measures and has opted to proceed with a elective Left total knee arthroplasty. Hospital course: Details of patient's surgery can be found in operative report. Patient tolerated the procedure well and was subsequently transported to orthopedic floor. Patient's orthopeidc and medical care was provided daily. Patient had daily laboratory tests performed for evaluation of overall blood counts. Patient had daily physical therapy to include strengthening range of motion as well as education with walker ambulation. Patient was treated with Aspirin for their postoperative DVT prophylaxis during their inpatient stay. Patient was noted to have a relatively uneventful postoperative course. Patient reported satisfactory pain control with oral pain medications by postoperative day 1. Patient showed satisfactory progress with physical therapy. Patient moved steadily through the program and had no difficulty meeting the goals by postoperative day 2. Given patient's otherwise satisfactory course and having met physical therapy goals, plan is to discharge patient home on postoperative day 2. Discharge condition/disposition: Patient will be discharged home in stable condition. Discharge medications: Instructions are given on resumption of patient's normal daily medications per primary care recommendation, in addition patient will be prescribed Mullen 7.5 mg/325 mg, senna S, aspirin 81 mg. Discharge instructions: 1. Wound care and infection precautions, keep incision dry and covered while showering, no lotions, creams, moisturizers. No soaking, tubs, pools, hottubs. Do not scrub over the incision. 2. Weight-bear as tolerated with walker / cane until follow-up. 3. Ice and elevate when necessary. Do not exceed 20 minutes per hour with ice pack. 4. Utilize compression sleeve until seen at first follow up appointment. 5. Visiting nursing care. 6. Home physical therapy including home CPM. 7. Pain meds and anticoagulants per prescription. 8. Pain medication has potential to cause constipation. Increase oral fluid and fiber intake. Contact primary care provider if you have not had a bowel movement within 48 hours after discharge 9. No anti-inflammatory medication until discussed at first post operative visit, this including Motrin, Aleve, Mobic, Diclofenac. 10. Follow up in office at 2 weeks postop with Roland Tejeda PA-C/Ricki Agrawal 11. Follow up with your primary care doctor 7-10 days after discharge. 12. Contact [facility] with any questions, . Procedures: Left total knee arthroplasty Patient Condition at Discharge: Good Plan - Discharge Summary Discharge Rx Participant: No New Discharge Prescriptions: New Aspirin [Adult Low Dose Aspirin EC] 81 mg PO BID #60 tab Sennosides/Docusate Sodium [Senna-S 8.6-50 mg Tablet] 2 each PO DAILY PRN #30 tablet PRN Reason: Constipation HYDROcodone/APAP 7.5-325MG [Mullen 7.5] 1 each PO Q4HR PRN #42 tab PRN Reason: Pain Continue Lisinopril-Hctz 20-12.5 mg [Zestoretic 20-12.5] 1 tab PO BID amLODIPine [Norvasc] 10 mg PO DAILY Metoprolol Succinate [Toprol XL] 100 mg PO DAILY Rosuvastatin [Crestor] 10 mg PO DAILY Pioglitazone [Actos] 45 mg PO DAILY Potassium Chloride 10 meq PO DAILY Furosemide [Lasix] 20 mg PO DAILY No Action Aspirin [Adult Low Dose Aspirin EC] 81 mg PO DAILY Discharge Medication List Lisinopril-Hctz 20-12.5 mg [Zestoretic 20-12.5] 1 tab PO BID 08/03/14 [History] Aspirin [Adult Low Dose Aspirin EC] 81 mg PO DAILY 06/26/18 [History] Metoprolol Succinate [Toprol XL] 100 mg PO DAILY 06/26/18 [History] amLODIPine [Norvasc] 10 mg PO DAILY 06/26/18 [History] Furosemide [Lasix] 20 mg PO DAILY 05/07/24 [History] Pioglitazone [Actos] 45 mg PO DAILY 05/07/24 [History] Potassium Chloride 10 meq PO DAILY 05/07/24 [History] Rosuvastatin [Crestor] 10 mg PO DAILY 05/07/24 [History] Aspirin [Adult Low Dose Aspirin EC] 81 mg PO BID #60 tab 05/27/24 [Rx] HYDROcodone/APAP 7.5-325MG [Mullen 7.5] 1 each PO Q4HR PRN #42 tab 05/27/24 [Rx] Sennosides/Docusate Sodium [Senna-S 8.6-50 mg Tablet] 2 each PO DAILY PRN #30 tablet 05/27/24 [Rx] Follow up Appointment(s)/Referral(s): [facility],Equipment [NON-STAFF] - As Needed (*Call [facility] once home to arrange delivery of the Continuous Passive Motion (CPM) machine. ) Pedro Luis Tejeda PAC [PHYSICIAN INSTALLATION AND REPAIR TECHNICIAN] - 2 Weeks [facility], [NON-STAFF] - 1-2 Days ([facility] will call you to schedule your in home nursing and physical therapy visits. ) Activity/Diet/Wound Care/Special Instructions: Orthopedic Discharge Instructions: 1. Wound care and infection precautions, keep incision dry and covered while showering, no lotions, creams, moisturizers. No soaking, pools, hot tubs. Do not scrub over incision. 2. Weight-bear as tolerated with walker / cane until follow-up. 3. Ice and elevate when necessary. Do not exceed 20 minutes per hour with ice pack. 4. Utilize compression sleeve until seen at first follow up appointment. 5. Pain meds and anticoagulants per prescription. 6. Pain medication has potential to cause constipation. Increase oral fluid and fiber intake. Contact primary care provider if you have not had a bowel movement within 48 hours after discharge. 7. No anti-inflammatory medication until discussed at first post operative visit, this including Motrin, Aleve, Mobic, Diclofenac. 8. Follow up in office at 2 weeks postop with Roland Tejeda PA-C/Ricki Bruno PA-C 9. Follow up with your primary care doctor 7-10 days after discharge. 10. Contact [facility] with any questions, . Wound care instructions: 1. Okay to remove surgical dressing as of 06/03/2024 2. Okay to shower directly over the incision after removal of dressing Discharge Disposition: HOME WITH HOME HEALTH SERVICES
[2024-05-27 11:43] LABS: Glucose,Whole Blood 138 mg/dL (70-110)
[2024-05-27 14:04] VITALS: BP 124/77; PULSE 50; RESP 18; TEMP 98.7
== END 2024-05-27 14:57 | disposition home health service (06) ==
LOC: OR 05:41 → 4SSUR 09:36 → OR 05-27 14:57
PROVIDERS: ATTEND Orthopaedic Surgery
DX: M17.12 Unilateral primary osteoarthritis, left knee (principal); I10 Essential (primary) hypertension; E78.5 Hyperlipidemia, unspecified; I25.10 Atherosclerotic heart disease of native coronary artery without angina pectoris; Z96.652 Presence of left artificial knee joint; Z01.810 Encounter for preprocedural cardiovascular examination; Z88.5 Allergy status to narcotic agent; Z79.82 Long term (current) use of aspirin; Z79.899 Other long term (current) drug therapy
CPT/HCPCS: 97161; 64999; 64448; 80053; 85025; 73560; 27447; C1776; C1713 ×2; C1751; J2250; J1100; J0690 ×2; J2405; J3010; J2795; J1171